=== PATIENT | male | born 1960 | race African-American/Black ===

== ENCOUNTER 2024-11-11 19:43 | Inpatient (IN) | payer MEDICAID ==
[~2024-11-11] VITALS: Ht 175.3 cm; Wt 117.5 kg
[2024-11-11 20:38] LABS: COVID AG,FIA SOURCE NASAL SWAB
[2024-11-11 20:42] LABS: PH,URINE DRUG SCREEN 6.5 (5.0-8.0)
[2024-11-11 20:49] LABS: ALCOHOL, URINE DRUG SCREEN NEGATIVE (NEGATIVE); AMPHET/METH SCREEN,URINE NEGATIVE (NEGATIVE); BARBITURATE SCREEN, URINE NEGATIVE (NEGATIVE); CANNABINOID SCREEN,URINE NEGATIVE (NEGATIVE); COCAINE SCREEN,URINE NEGATIVE (NEGATIVE); METHADONE SCREEN, URINE NEGATIVE (NEGATIVE)
[2024-11-11] MEDS ORDERED: ACET-2247 PO (20:54)
[2024-11-11 21:01] LABS: SARS-COV2 (COVID) ANTIGEN,FIA Negative (Negative)
[2024-11-11] MEDS: ACETAMINOPHEN 325 MG TABLET PO ONE (21:01)
[2024-11-11 21:05] LABS: PLATELET COUNT (AUTO) 195 K/uL (150-450); RED BLOOD CELL COUNT(AUTO) 4.00 MIL/uL (4.50-5.90); RED CELL DISTRIBUTION WIDTH 14.0 % (11.5-14.5); WHITE BLOOD COUNT (AUTO) 10.1 K/uL (4.5-11.0)
[2024-11-11 21:11] LABS: CALCIUM, TOTAL 8.9 mg/dL (8.8-10.5); CREATININE 0.86 mg/dL (0.60-1.30); GLOMERULAR FILTR. RATE CALC > 60 mL/min (>60); GLUCOSE,RANDOM 125 mg/dL (70-110); SODIUM SERUM 134 mmol/L (136-145); UREA NITROGEN, BLOOD 13 mg/dL (7-18)
[2024-11-12 02:32] VITALS: O2SAT 97
[2024-11-12] MEDS ORDERED: ZOLPIDEM TARTRATE 10 MG TABLET PO PRN (02:45)
[2024-11-12 05:06] LABS: GLUCOMETER DEV NAME(LOC) BV3S.2; GLUCOSE,POINT OF CARE 116 MG/DL (70-110)
[2024-11-12 05:46] VITALS: BP 124/100; PULSE 65; RESP 18; TEMP 97.2; O2SAT 98
[2024-11-12 08:21] VITALS: BP 123/87; PULSE 74; RESP 16; TEMP 97.9; O2SAT 100
[2024-11-12] MEDS ORDERED: LOPERAMIDE HCL 2 MG CAPSULE PO PRN ×2 (10:15→11:00)
[2024-11-12] MEDS ORDERED: ONDANSETRON 4 MG TABLET PO PRN (10:15)
[2024-11-12] MEDS ORDERED: BACITRACIN 28 GM OINTMENT TP PRN (10:15)
[2024-11-12] MEDS ORDERED: OMEPRAZOLE 20 MG CAPSULE PO PRN (10:15)
[2024-11-12] MEDS ORDERED: MAGNESIUM HYDROXIDE SUSPENSION 30 ML UDCUP PO PRN ×2 (10:15→11:00)
[2024-11-12] MEDS ORDERED: BENZOCAINE/MENTHOL [CEPACOL] LOZENGE PO PRN (10:15)
[2024-11-12] MEDS ORDERED: PETROLATUM,WHITE 28 GM JELLY TP PRN (10:15)
[2024-11-12] MEDS ORDERED: ACETAMINOPHEN 325 MG TABLET PO PRN ×2 (10:15→11:00)
[2024-11-12] MEDS ORDERED: IBUPROFEN 600 MG TABLET PO PRN (10:15)
[2024-11-12] MEDS ORDERED: MAG HYDROX/ALUMINUM HYD/SIMETH ES 30 ML SUSPENSION UDCUP PO PRN ×2 (10:15→11:00)
[2024-11-12] MEDS ORDERED: DOCUSATE SODIUM 100 MG CAPSULE PO PRN (10:15)
[2024-11-12] MEDS ORDERED: ALBUTEROL SULFATE HFA 90 MCG/PUFF 8 GM INHALER IH PRN (10:15)
[2024-11-12] MEDS ORDERED: PROMETHAZINE HCL 25 MG TABLET PO PRN (11:00)
[2024-11-12] MEDS ORDERED: GuaiFENesin/D-METHORPHAN [SUGAR-FREE] 200-20MG/10 ML SYRUP UDCUP PO PRN (11:00)
[2024-11-12] MEDS ORDERED: OLANZapine 5 MG RAPDIS TABLET PO PRN (11:00)
[2024-11-12] MEDS ORDERED: MELATONIN 5 MG TABLET PO PRN (11:00)
[2024-11-12] MEDS ORDERED: PALIPERIDONE PALMITATE 234 MG/1.5 ML SYRINGE IM ONE (16:15)
[2024-11-12] MEDS: THIAMINE 100 MG TABLET PO SCH (17:15)
[2024-11-12] MEDS: OLANZapine 5 MG RAPDIS TABLET PO SCH (20:13)
[2024-11-12] MEDS: DIVALPROEX SODIUM 500 MG ER TABLET PO SCH (20:13)
[2024-11-12 20:20] VITALS: BP 129/71; PULSE 84; RESP 18; TEMP 97.4; O2SAT 97
[2024-11-13 08:04] VITALS: BP 150/82; PULSE 82; RESP 17; TEMP 97.7; O2SAT 96
[2024-11-13] MEDS: FOLIC ACID 1 MG TABLET PO SCH (08:14)
[2024-11-13] MEDS: MULTIVITAMINS WITH MINERALS, THERAPEUTIC TABLET PO SCH (08:15)
[2024-11-13] MEDS: NALTREXONE HCL 50 MG TABLET PO SCH (08:15)
[2024-11-13 09:39] LABS: CHOL/HDL RATIO 5.0 (4.2-7.3); LDL CHOL (CALC.) 128.0 mg/dL (0-130)
[2024-11-13] MEDS: PNEUMOCOCCAL VACCINE POLYVALENT 0.5 ML SYRINGE [PPSV23] IM. ONE (17:24)
[2024-11-13] MEDS: TUBERCULIN, PURIFIED PROTEIN DERIVATIVE 5 TU/0.1 ML SYRINGE ID ONE (17:25)
[2024-11-13 20:15] VITALS: BP 118/84; PULSE 76; RESP 17; TEMP 96.9; O2SAT 98
[2024-11-14 08:05] VITALS: BP 129/74; PULSE 72; RESP 16; TEMP 97.3; O2SAT 95
[2024-11-14 20:54] VITALS: BP 140/88; PULSE 88; RESP 17; TEMP 98; O2SAT 100
[2024-11-15 08:13] VITALS: BP 131/79; PULSE 75; RESP 16; TEMP 97.4; O2SAT 95
[2024-11-15] MEDS ORDERED: MELA5TAB40 PO (17:25)
[2024-11-15] MEDS ORDERED: PALI117D IM (17:25)
[2024-11-15] MEDS ORDERED: NALT50TA33 PO (17:25)
[2024-11-15] MEDS ORDERED: OLAN5TAB94 PO (17:25)
[2024-11-15] MEDS ORDERED: DIVA-153 PO (17:25)
[2024-11-15 20:08] VITALS: BP 144/75; PULSE 79; RESP 16; TEMP 97.8; O2SAT 96
[2024-11-16 08:08] VITALS: BP 139/92; PULSE 76; RESP 18; TEMP 97.8; O2SAT 96
[2024-11-16] MEDS: PALIPERIDONE PALMITATE 156 MG/ML SYRINGE IM ONE (08:29)
== END 2024-11-16 16:35 | DRG 750 ==
LOC: EMS 19:43 → B3A 11-12 02:29
PROVIDERS: ADMIT Psychiatry & Neurology Psychiatry; ATTEND Psychiatry & Neurology Psychiatry
PROC: GZHZZZZ Group Psychotherapy (ICD-10-PCS; principal; 2024-11-12)
PROC: GZ58ZZZ Individual Psychotherapy, Cognitive-Behavioral (ICD-10-PCS; 2024-11-12)
PROC: GZ56ZZZ Individual Psychotherapy, Supportive (ICD-10-PCS; 2024-11-15)
DX: F25.0 Schizoaffective disorder, bipolar type (principal); E11.9 Type 2 diabetes mellitus without complications; E66.9 Obesity, unspecified; F41.9 Anxiety disorder, unspecified; I10 Essential (primary) hypertension; K59.00 Constipation, unspecified; F70 Mild intellectual disabilities; G47.00 Insomnia, unspecified; Z20.822 Contact with and (suspected) exposure to COVID-19; Z68.38 Body mass index [BMI] 38.0-38.9, adult; Z55.9 Problems related to education and literacy, unspecified; Z59.9 Problem related to housing and economic circumstances, unspecified; Z63.9 Problem related to primary support group, unspecified; Z65.3 Problems related to other legal circumstances; Z91.148 Patient's other noncompliance with medication regimen for other reason
CPT/HCPCS: 80048; 80061; 80164; 80307; 82962; 83036; 84439; 84443; 85025; 86592; 87081; 90732; G0480